=== PATIENT | female | born 1995 | race Caucasian/White ===

== ENCOUNTER 2016-11-02 05:56 | Day surgery (SDC) | payer OTHER ==
[2016-10-26 13:31] VITALS: BMI 29.0
[2016-11-02] MEDS ORDERED: CEFAZOLIN 2 GM in DEXTROSE 5%-WATER - 100 ML IVPB ONE (07:23)
[2016-11-02] MEDS ORDERED: DEXAMETHASONE SOD PHOSPHATE/PF 10 MG/ML SDV ONE (07:24)
[2016-11-02] MEDS ORDERED: MIDAZOLAM HCL 2 MG/2 ML SINGLE DOSE VIAL ONE (07:24)
[2016-11-02] MEDS ORDERED: BUPIVACAINE HCL/PF (5 MG/ML) 30 ML VIAL IJ ONE (07:24)
[2016-11-02] MEDS ORDERED: TRANEXAMIC ACID 1000 MG/10 ML VIAL ONE ×3 (07:28→09:37)
[2016-11-02] MEDS ORDERED: EPINEPHrine 1:1,000 1 MG/1 ML - 30ML VIAL (INJECTION) ONE (07:29)
[2016-11-02] MEDS ORDERED: VANCOMYCIN 1,000 MG VIAL (RESTRICTED TO ID ONLY) ONE ×2 (07:29→09:35)
[2016-11-02] MEDS ORDERED: BUPIVACAINE HCL/EPINEPHRINE/PF 30 ML VIAL IJ ONE (07:29)
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
[2016-11-02] MEDS ORDERED: ePHEDrine SULFATE 50 MG/1 ML AMPULE ONE (07:53)
[2016-11-02] MEDS ORDERED: PROPOFOL 20 ML ONE ×6 (07:53→10:10)
[2016-11-02] MEDS ORDERED: SUCCINYLCHOLINE CHLORIDE 200 MG/10 ML VIAL ONE (07:54)
[2016-11-02] MEDS ORDERED: LIDOCAINE HCL/PF 2% SDV 5ML VIAL ONE (08:08)
[2016-11-02] MEDS ORDERED: ONDANSETRON 4 MG/2 ML VIAL ONE (08:15)
[2016-11-02] MEDS ORDERED: DEXAMETHASONE SOD PHOSPHATE 4 MG/1 ML VIAL ONE (08:15)
[2016-11-02] MEDS ORDERED: ceFAZolin SODIUM 1 GM VIAL ONE (08:15)
[2016-11-02] MEDS ORDERED: HYDROmorphone HCL/PF 1 MG/ML VIAL (FOR PYXIS CHARGING ONLY) ONE (09:28)
--- NOTE | 2016-11-02 10:47 | OP ---
Operative Note - Note: Operative Date: 11/02/16 Pre-Operative Diagnosis: left patella instability Operation: LKA, lateral release, open MPFL reconstruction, Open tibial tubercle osteotomy Post-Operative Diagnosis: Same as Pre-op Surgeon: Bruno Kaur Anesthesia: General Operative Report Dictated: Yes
--- NOTE | 2016-11-02 10:47 | DS ---
Physical Examination Vital Signs: Vital Signs Temperature 97.9 F 11/02/16 06:48 Pulse Rate 64 11/02/16 06:48 Respiratory Rate 18 11/02/16 06:48 Blood Pressure 102/69 11/02/16 06:48 O2 Sat by Pulse Oximetry (%) 97 11/02/16 06:48 Discharge Summary Reason For Visit: LEFT PATELLA INSTABILITY Condition: Good - Instructions Diet, Activity, Other Instructions: Post Operative Instructions: Knee Arthroscopy Dr Bruno Kaur 1. Pain following an arthroscopy is variable. Some patients will have more pain than others. You have been provided with a prescription for medication that contains a narcotic. You are not allowed to drive while on this medication. You can take Tylenol (Acetaminophen) when taking the pain medication . Feel free to take medications such as Ibuprofen or Naprosyn in addition to the pain medicine if you do not have any problems with the NSAID class of medications. 2. You allowed to shower in 48 hours Leave the bandages in place for 10 days. 3. You are NOT allowed to put weight on the leg or bend your knee,. You should use the knee brace at all times except when showering. 4. Apply ice to the knee for 15 min every hour or so. You may continue this for as many days as you like. 5. Please call the office to schedule a visit to have your sutures removed. 6. If for any reason you believe you may have an infection or are concerned, please feel free to call me. I can be reached through our office number 24 hours a day. 7. Please call our office with any questions; we will review the surgical findings during your post operative visit. Disposition: HOME - Home Medications Comprehensive Discharge Medication List: Ambulatory Orders Alprazolam [Xanax Xr] 2 mg PO HS 11/25/15 Escitalopram Oxalate [Lexapro -] 20 mg PO HS 11/25/15 Lamotrigine [Lamictal] 100 mg PO HS 11/25/15 #92/Iron/FA #8/Ps-Dha [Enbrace Hr Softgel] 1 each PO DAILY 12/02/15 Brexpiprazole [Rexulti] 1 mg PO DAILY 10/26/16 Clonazepam [Klonopin] 2 mg PO BID 10/26/16 Lamotrigine [Lamictal] 150 mg PO AM 11/02/16
[2016-11-02] MEDS ORDERED: ONDANSETRON 4 MG/2 ML VIAL IVPUSH PRN (11:26)
[2016-11-02] MEDS ORDERED: oxyCODONE HCL 5 MG TABLET PO PRN ×2 (11:26)
[2016-11-02] MEDS ORDERED: PROMETHAZINE HCL 25 MG/1 ML VIAL IVPUSH PRN (11:26)
[2016-11-02] MEDS ORDERED: LACTATED RINGERS SOLUTION 1,000 ML IV SCH (11:30)
--- NOTE | 2016-11-02 13:22 | SURG ---
Surgery [facility] Note Fourchette Sewer: Kenny Uribe PA-C Date of Service: 11/02/16 Diagnosis: left patella instability Procedure: Left knee arthroscopy, lateral release, open MPFL reconstruction, Open tibial tubercle osteotomy I was present for the entirety of the operative procedure. For further detail, please refer to operative report. Visit type - Case Type Case Type: Scheduled Admission - New patient This patient is new to me today: Yes Date on this admission: 11/02/16
[2016-11-02 13:52] VITALS: BP 118/66; PULSE 75; TEMP 98
--- NOTE | 2016-11-06 17:00 | PATH ---
Surgical Pathology Report Patient Name: JASON ROSALES [facility]. Rec. #: [id number] /Age/Gender: 1995 (Age: 21) / F Account: [id number] Location: [facility] Taken: 11/02/2016 Received: 11/02/2016 Reported: 11/06/2016 Physicians: Bruno Kaur M.D. Specimen(s) Received SHAVINGS LEFT KNEE Clinical History Left patellar instability Final Diagnosis KNEE, LEFT, ARTHROSCOPIC SHAVINGS: FIBROADIPOSE TISSUE, SKELETAL MUSCLE AND BLOOD CLOT. Electronically Signed Melissa Lynch M.D. Gross Description Received in formalin, labeled "shavings left knee," is a 4.0 x 3.3 x 0.5 cm. aggregate of red-brown soft tissue fragments. 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 /11/02/2016 saudi11/02/2016
== END 2016-11-02 13:35 | disposition home or self-care (01) ==
LOC: FASU 05:56
PROVIDERS: ATTEND Orthopaedic Surgery
PROC: 0QSH04Z Reposition Left Tibia with Internal Fixation Device, Open Approach (ICD-10-PCS; 2016-11-02)
PROC: 0SUD09C Supplement Left Knee Joint with Liner, Patellar Surface, Open Approach (ICD-10-PCS; 2016-11-02)
PROC: 0MNP4ZZ Release Left Knee Bursa and Ligament, Percutaneous Endoscopic Approach (ICD-10-PCS; principal; 2016-11-02 08:32)
DX: M25.362 Other instability, left knee (principal); M22.8X2 Other disorders of patella, left knee
CPT/HCPCS: 73560-TC-LT; 76000-TC; 84703; 88304-TC; 94760